=== PATIENT | female | born 1955 | race Caucasian/White ===

== ENCOUNTER 2018-07-12 10:24 | Outpatient (CLI) | payer OTHER | END 2018-07-12 10:41 | disposition home or self-care (01) | LOC: T RESPIRAT 10:24 | DX: R09.02 Hypoxemia (principal); J45.40 Moderate persistent asthma, uncomplicated ==

== ENCOUNTER 2018-09-21 09:57 | Outpatient (CLI) | payer OTHER | END 2018-09-21 09:59 | disposition home or self-care (01) | LOC: SONOGRAMA 09:57 | DX: M12.89 Other specific arthropathies, not elsewhere classified, multiple sites (principal); M19.90 Unspecified osteoarthritis, unspecified site ==

== ENCOUNTER 2018-12-20 00:15 | Inpatient (IN) | payer OTHER ==
[~2018-12-20] VITALS: Ht 167.6 cm; Wt 127.0 kg
--- NOTE | 2018-12-20 00:45 | NUR ---
PACIENTE QUE LLEGA ALERTA CONSCIENTE Y ORIENTADA X3 PRESENTANDO DIFICULTAD AL RESPIRAR SPO2 93% QUE LLEGA EN AMBULANCIA EN COMPANIA DE PARAMEDICOS. QUIENES REFIEREN DESVIACION DE COMISURA LABIAL DIFICULTAD DEL HABLA DESDE LAS 5PM. SE REALIZA EKG EVALUADO POR EL DR. AGUILAR SE COLOCA EN AREA DE CRITICO.
[2018-12-20] MEDS ORDERED: CLARITIN10 M1 (01:00)
--- NOTE | 2018-12-20 01:00 | NUR ---
SE RECIBE PACIENTE AL AREA DE CRITICO SE REALIZA CBC,BMP,PT PTT,PRO BNP, TROPONINE Y U/A.SE REALIZA Y SE ENVIA AL LABORATORIO.SE CANALIZA EN PERIFERAL RT CON ANGIO #18 UTILIZANDO MEDIDAS ASETICAS.SE REALIZO CT SCAN POR TECNICO DE CT Y PLACA PORTABLE POR TECNICO DE EJANIE X.SE INSERTA BRUCE #16 UTILIZANDO MEDIDA ESTERILES.SE CONTINUA OBSERVANNDO PACIENTE POR CAMBIOS EN MENDEZ CONDICION.
[2018-12-20] MEDS ORDERED: MILLIPRED5 MG (01:01)
[2018-12-20] MEDS ORDERED: MICARDIS HCT 81 EAC1 (01:01)
[2018-12-20] MEDS ORDERED: CATAPRES0.3 M1 (01:01)
[2018-12-20] MEDS ORDERED: GLIMEPIRIDE4 MG (01:02)
[2018-12-20] MEDS ORDERED: TOPROL XL100 M1 (01:02)
[2018-12-20] MEDS ORDERED: BENZONATATE200 M1 (01:02)
[2018-12-20] MEDS ORDERED: ALDACTONE25 MG (01:02)
[2018-12-20] MEDS ORDERED: METFORMIN HCL1000 M1 (01:03)
[2018-12-20] MEDS ORDERED: DILTIAZEM ER420 MG (01:03)
--- NOTE | 2018-12-20 02:26 | NUR ---
SE REALIZO DXT 318MG/dl.SE NOTIFICA A
== END 2019-01-01 09:20 | DRG 64 ==
LOC: ER 00:15 → ICU-2 06:32 → ICU 12-22 03:14 → MEDJ 12-26 11:17 → MEDI 12-29 14:27
PROVIDERS: ADMIT Internal Medicine Cardiovascular Disease
PROC: B030ZZZ Magnetic Resonance Imaging (MRI) of Brain (ICD-10-PCS; principal; 2018-12-20)
PROC: BW28ZZZ Computerized Tomography (CT Scan) of Head (ICD-10-PCS; 2018-12-20)
PROC: B348ZZZ Ultrasonography of Bilateral Internal Carotid Arteries (ICD-10-PCS; 2018-12-20)
PROC: B246ZZZ Ultrasonography of Right and Left Heart (ICD-10-PCS; 2018-12-20)
PROC: 4A033R1 Measurement of Arterial Saturation, Peripheral, Percutaneous Approach (ICD-10-PCS; 2018-12-20)
PROC: 3E0F7GC Introduction of Other Therapeutic Substance into Respiratory Tract, Via Natural or Artificial Opening (ICD-10-PCS; 2018-12-20)
PROC: 4A12X4Z Monitoring of Cardiac Electrical Activity, External Approach (ICD-10-PCS; 2018-12-26)
DX: I63.413 Cerebral infarction due to embolism of bilateral middle cerebral arteries (principal); I33.9 Acute and subacute endocarditis, unspecified; G81.94 Hemiplegia, unspecified affecting left nondominant side; I27.0 Primary pulmonary hypertension; J44.1 Chronic obstructive pulmonary disease with (acute) exacerbation; I48.91 Unspecified atrial fibrillation; Z79.01 Long term (current) use of anticoagulants; R47.1 Dysarthria and anarthria; R29.810 Facial weakness; J01.00 Acute maxillary sinusitis, unspecified; E11.9 Type 2 diabetes mellitus without complications; Z79.4 Long term (current) use of insulin; G47.33 Obstructive sleep apnea (adult) (pediatric); Z88.6 Allergy status to analgesic agent; I48.0 Paroxysmal atrial fibrillation; E66.09 Other obesity due to excess calories; I65.03 Occlusion and stenosis of bilateral vertebral arteries; R29.703 NIHSS score 3; I34.0 Nonrheumatic mitral (valve) insufficiency; I07.1 Rheumatic tricuspid insufficiency; J45.40 Moderate persistent asthma, uncomplicated
CPT/HCPCS: 70551

== ENCOUNTER 2019-01-13 14:55 | Emergency (ER) | payer OTHER ==
[~2019-01-13] VITALS: Ht 162.6 cm; Wt 119.7 kg
[~2019-01-13 14:55] MED LIST: ALDACTONE25 MG; BENZONATATE200 M1; CATAPRES0.3 M1; CLARITIN10 M1; DILTIAZEM ER420 MG; GLIMEPIRIDE4 MG; METFORMIN HCL1000 M1; MICARDIS HCT 81 EAC1; MILLIPRED5 MG; TOPROL XL100 M1
== END 2019-01-14 09:19 | disposition home or self-care (01) ==
LOC: ER 14:55 → CPU-OBS 14:58 → ER 14:58
DX: I48.2 Chronic atrial fibrillation (principal); I10 Essential (primary) hypertension; R42 Dizziness and giddiness; K52.9 Noninfective gastroenteritis and colitis, unspecified
CPT/HCPCS: G0378; G0379; 93005

== ENCOUNTER 2019-01-19 13:28 | Inpatient (IN) | payer OTHER ==
[~2019-01-19] VITALS: Ht 162.6 cm; Wt 110.7 kg
[2019-01-19] MEDS ORDERED: SOLU-MEDROL2 GM (14:05)
[2019-01-19] MEDS ORDERED: MECLIZINE HCL12.5 MG (14:05)
[2019-01-19] MEDS ORDERED: ASPIRIN81 M1 (14:05)
[2019-01-19] MEDS ORDERED: HYDROCHLOROTHIA50 MG (14:06)
[2019-01-19] MEDS ORDERED: NORVASC10 MG (14:06)
--- NOTE | 2019-01-19 14:06 | NUR ---
SE RECIBE PTE ALERTA Y ORIENTADA X 3 ESFERAS, LA CUAL LLEGA EN AMBULANCIA. REFIERE PALPITACIONES Y DEBILIDAD DESDE HOY EN LA MANANA. SE REALIZA EKG Y SE PRESENTA A LA DRA SAUL. SE UBICA EN AREA DE OBSERVACION CONECTADA A MONITOR CARDIACO Y OXIMETRIA DE PULSO.
--- NOTE | 2019-01-19 16:40 | NUR ---
SE ORIENTA SOBRE EL TX. SE COLOCA MONITOR CARDIACO Y OXIMETRIA DE PULSO. SE EXTRAEN MUESTRAS DE MARCELLA BAJO MEDIDAS ASEPTICAS, SE ROTULAN Y ENVIAN AL LABORATORIO. SE CANALIZA Y ADMINISTRAN MEDICAMENTOS SOFY ORDEN MEDICA. SE MANTIENE BAJO OBSERVACION
[2019-01-23] MEDS ORDERED: CARDIZEM60 MG PO (11:07)
[2019-01-23] MEDS ORDERED: ELIQUIS2.5 MG PO (11:07)
[2019-01-23] MEDS ORDERED: ISOSORBIDE MONO30 MG PO (11:07)
== END 2019-01-23 12:43 | disposition home or self-care (01) | DRG 310 ==
LOC: ER 13:28 → MEDJ 19:21 → SEC-K 19:21 → MEDJ 22:24
PROVIDERS: ADMIT Internal Medicine Cardiovascular Disease
PROC: 4A033R1 Measurement of Arterial Saturation, Peripheral, Percutaneous Approach (ICD-10-PCS; principal; 2019-01-19)
PROC: 4A12X4Z Monitoring of Cardiac Electrical Activity, External Approach (ICD-10-PCS; 2019-01-20)
DX: I48.2 Chronic atrial fibrillation (principal); I07.1 Rheumatic tricuspid insufficiency; I34.0 Nonrheumatic mitral (valve) insufficiency; I27.29 Other secondary pulmonary hypertension; I45.19 Other right bundle-branch block; J45.998 Other asthma; I10 Essential (primary) hypertension; E11.9 Type 2 diabetes mellitus without complications; E66.8 Other obesity; H81.13 Benign paroxysmal vertigo, bilateral; Z86.73 Personal history of transient ischemic attack (TIA), and cerebral infarction without residual deficits; Z79.01 Long term (current) use of anticoagulants

== ENCOUNTER → 2019-02-09 09:44 | Outpatient (CLI) | payer OTHER ==
[~2019-02-09 09:44] MED LIST changes: +ASPIRIN81 M1; +CARDIZEM60 MG PO; +ELIQUIS2.5 MG PO; +HYDROCHLOROTHIA50 MG; +ISOSORBIDE MONO30 MG PO; +MECLIZINE HCL12.5 MG; +NORVASC10 MG; +SOLU-MEDROL2 GM
== END | disposition home or self-care (01) ==
LOC: LAB 09:44
DX: D68.8 Other specified coagulation defects (principal); I63.50 Cerebral infarction due to unspecified occlusion or stenosis of unspecified cerebral artery

== ENCOUNTER → 2019-06-06 10:25 | Outpatient (CLI) | payer OTHER | END | disposition home or self-care (01) | LOC: LAB 10:25 | DX: M10.9 Gout, unspecified (principal) ==

== ENCOUNTER → 2019-06-06 | Outpatient (CLI) | payer OTHER | END | disposition home or self-care (01) | LOC: RAD 10:50 | DX: M12.871 Other specific arthropathies, not elsewhere classified, right ankle and foot (principal) ==

== ENCOUNTER 2019-06-16 12:15 | Emergency (ER) | payer OTHER ==
[~2019-06-16] VITALS: Ht 162.6 cm; Wt 93.0 kg
== END 2019-06-16 14:53 | disposition home or self-care (01) ==
LOC: ER 12:15
DX: I48.91 Unspecified atrial fibrillation (principal); R00.2 Palpitations

== ENCOUNTER 2019-08-17 09:51 | Emergency (ER) | payer OTHER ==
[~2019-08-17] VITALS: Ht 162.6 cm; Wt 88.5 kg
[2019-08-17] MEDS ORDERED: GLUMETZA500 MG PO (10:29)
[2019-08-17] MEDS ORDERED: GLIMEPIRIDE2 MG (10:29)
== END 2019-08-17 11:25 | disposition home or self-care (01) ==
LOC: ER 09:51
DX: S80.02XA Contusion of left knee, initial encounter (principal); W18.39XA Other fall on same level, initial encounter; Y93.89 Activity, other specified; Y92.830 Public park as the place of occurrence of the external cause; Y99.8 Other external cause status; M17.12 Unilateral primary osteoarthritis, left knee

== ENCOUNTER 2019-09-21 15:26 | Outpatient (CLI) | payer OTHER ==
[~2019-09-21 15:26] MED LIST changes: +GLIMEPIRIDE2 MG; +GLUMETZA500 MG PO
== END 2019-09-21 15:35 | disposition home or self-care (01) ==
LOC: RAD 15:26
DX: M46.47 Discitis, unspecified, lumbosacral region (principal)

== ENCOUNTER 2020-01-01 10:33 | Emergency (ER) | payer OTHER ==
[~2020-01-01] VITALS: Ht 165.1 cm; Wt 90.7 kg
[2020-01-01] MEDS ORDERED: LIPITOR20 MG (12:29)
[2020-01-01] MEDS ORDERED: ZYLOPRIM300 MG (12:29)
[2020-01-01] MEDS ORDERED: GLIMEPIRIDE4 MG (12:30)
== END 2020-01-01 14:38 | disposition home or self-care (01) ==
LOC: ER 10:33
DX: R25.8 Other abnormal involuntary movements (principal); R00.0 Tachycardia, unspecified

== ENCOUNTER 2020-08-16 20:10 | Emergency (ER) | payer OTHER ==
[~2020-08-16] VITALS: Ht 165.1 cm; Wt 99.8 kg
[~2020-08-16 20:10] MED LIST changes: +LIPITOR20 MG; +ZYLOPRIM300 MG
[2020-08-16] MEDS ORDERED: DILTIAZEM 24HR240 MG PO (20:35)
== END 2020-08-16 21:29 | disposition home or self-care (01) ==
LOC: ER 20:10
DX: S70.01XA Contusion of right hip, initial encounter (principal); S80.02XA Contusion of left knee, initial encounter; S80.01XA Contusion of right knee, initial encounter; W18.39XA Other fall on same level, initial encounter; Y93.89 Activity, other specified; Y92.89 Other specified places as the place of occurrence of the external cause; Y99.8 Other external cause status

== ENCOUNTER 2021-09-11 12:19 | Emergency (ER) | payer OTHER ==
[~2021-09-11] VITALS: Ht 162.6 cm; Wt 113.4 kg
[~2021-09-11 12:19] MED LIST changes: +DILTIAZEM 24HR240 MG PO
[2021-09-11] MEDS ORDERED: XOPENEX0.63 MG/3 IH (22:10)
== END 2021-09-11 22:16 | disposition home or self-care (01) ==
LOC: ER 12:19
DX: R10.9 Unspecified abdominal pain (principal); J45.909 Unspecified asthma, uncomplicated; I10 Essential (primary) hypertension; E11.9 Type 2 diabetes mellitus without complications; Z79.84 Long term (current) use of oral hypoglycemic drugs

== ENCOUNTER 2021-12-24 23:44 | Inpatient (IN) | payer OTHER ==
[~2021-12-24] VITALS: Ht 152.4 cm; Wt 97.5 kg
[~2021-12-24 23:44] MED LIST changes: +XOPENEX0.63 MG/3 IH
[2021-12-25] MEDS ORDERED: COLACE100 MG (00:06)
[2021-12-25] MEDS ORDERED: LASIX20 MG (00:06)
[2021-12-25] MEDS ORDERED: ISOSORBIDE MONO60 MG (00:06)
[2021-12-25] MEDS ORDERED: HYDROCHLOROTHIA25 MG (00:07)
[2021-12-25] MEDS ORDERED: TOPROL XL25 M1 (00:07)
[2021-12-25] MEDS ORDERED: COZAAR25 MG (00:07)
== END 2022-01-05 10:54 | disposition expired | DRG 637 ==
LOC: ER 23:44 → MEDI 12-25 09:47 → ICU 01-01 15:13
PROVIDERS: ADMIT Internal Medicine; ATTEND Internal Medicine
PROC: CP1Z1ZZ Planar Nuclear Medicine Imaging of Musculoskeletal System, All using Technetium 99m (Tc-99m) (ICD-10-PCS; principal; 2021-12-25)
PROC: B24BYZZ Ultrasonography of Heart with Aorta using Other Contrast (ICD-10-PCS; 2021-12-31)
PROC: 4A12X4Z Monitoring of Cardiac Electrical Activity, External Approach (ICD-10-PCS; 2021-12-31)
PROC: 5A09557 Assistance with Respiratory Ventilation, Greater than 96 Consecutive Hours, Continuous Positive Airway Pressure (ICD-10-PCS; 2021-12-31)
DX: E11.628 Type 2 diabetes mellitus with other skin complications (principal); I50.33 Acute on chronic diastolic (congestive) heart failure; J91.8 Pleural effusion in other conditions classified elsewhere; I13.0 Hypertensive heart and chronic kidney disease with heart failure and stage 1 through stage 4 chronic kidney disease, or unspecified chronic kidney disease; L03.032 Cellulitis of left toe; E11.621 Type 2 diabetes mellitus with foot ulcer; L03.031 Cellulitis of right toe; L97.529 Non-pressure chronic ulcer of other part of left foot with unspecified severity; L97.519 Non-pressure chronic ulcer of other part of right foot with unspecified severity; N17.8 Other acute kidney failure; B95.61 Methicillin susceptible Staphylococcus aureus infection as the cause of diseases classified elsewhere; B95.2 Enterococcus as the cause of diseases classified elsewhere; B96.89 Other specified bacterial agents as the cause of diseases classified elsewhere; E11.22 Type 2 diabetes mellitus with diabetic chronic kidney disease; N18.9 Chronic kidney disease, unspecified; I48.91 Unspecified atrial fibrillation; I08.1 Rheumatic disorders of both mitral and tricuspid valves; I27.22 Pulmonary hypertension due to left heart disease; E66.8 Other obesity; Z86.73 Personal history of transient ischemic attack (TIA), and cerebral infarction without residual deficits; Z79.84 Long term (current) use of oral hypoglycemic drugs; Z66 Do not resuscitate; Z78.1 Physical restraint status; Z68.38 Body mass index [BMI] 38.0-38.9, adult